=== PATIENT | male | born 1950 | race Caucasian/White ===

== ENCOUNTER 2024-07-30 17:59 | Inpatient (IN) | payer MEDICARE, OTHER ==
[~2024-07-30] VITALS: Ht 177.8 cm; Wt 91.2 kg
[2024-07-30 18:35] LABS: BASOPHILS % (AUTO) 0.4 % (0.0-2.0); EOSINOPHILS % (AUTO) 0.5 % (0.0-6.0); HEMATOCRIT 31 % (39-51); HEMOGLOBIN 10.2 g/dL (13.5-17.5); LYMPHOCYTES # (AUTO) 0.7 K/uL (0.8-4.8); LYMPHOCYTES % (AUTO) 9.5 % (20.0-44.0); MEAN CORPUSCULAR HEMOGLOBIN 30 PG (26.0-33.0); MEAN CORPUSCULAR HGB CONC 33 g/dl (31.0-36.0); MEAN CORPUSCULAR VOLUME 90 fL (80-96); MONOCYTES # (AUTO) 0.5 K/uL (0.1-1.30); MONOCYTES % (AUTO) 7.2 % (2.0-12.0); NEUTROPHILS # (AUTO) 6.3 K/uL (1.8-8.9); NEUTROPHILS % (AUTO) 82.4 % (43.0-81.0); PLATELET COUNT (AUTO) 158 K/uL (150-450); RED BLOOD CELL COUNT(AUTO) 3.43 MIL/uL (4.5-6.0); RED CELL DISTRIBUTION WIDTH 14.8 % (11.5-15.0); WHITE BLOOD COUNT (AUTO) 7.6 K/uL (4.3-11.0)
[2024-07-30] MEDS: IV NS 0.9% 1,000 ML BAG IV ONE (18:59)
[2024-07-30] MEDS ORDERED: ONDANSETRON HCL/PF 4 MG/2 ML VIAL ONE (19:05)
[2024-07-30] MEDS: ONDANSETRON HCL/PF - ER 4 MG/2 ML VIAL IV ONE (19:07)
[2024-07-30 19:08] LABS: LACTIC ACID 1.2 mmol/L (0.4-2.0)
[2024-07-30 19:15] LABS: ALANINE AMINOTRANSFERASE 24 U/L (12-78); ALBUMIN 3.3 g/dL (3.4-5.0); ALKALINE PHOSPHATASE 84 U/L (46-116); ASPARTATE AMINOTRANSFERASE 15 U/L (15-37); BILIRUBIN,DIRECT 0.2 mg/dL (0.0-0.2); BILIRUBIN,TOTAL 1.1 mg/dL (0.2-1.0); CARBON DIOXIDE 22 mmol/L (21-32); CHLORIDE 106 mmol/L (98-107); CREATININE 1.3 mg/dL (0.6-1.3); GLUCOSE 130 mg/dL (74-106); POTASSIUM 5.5 mmol/L (3.5-5.1); SODIUM SERUM 134 mmol/L (136-145); TOTAL PROTEIN, SERUM 6.3 g/dL (6.4-8.2); UREA NITROGEN, BLOOD 30 mg/dL (7-18)
[2024-07-30 19:20] LABS: CALCIUM, SERUM 7.3 mg/dL (8.5-10.1)
[2024-07-30 19:23] LABS: INR 1.17 (0.91-1.10); PARTIAL THROMBOPLASTIN TIME 27.1 SEC (24.3-34.3); PROTHROMBIN TIME 11.9 SECS (9.2-11.1)
[2024-07-30] MEDS: CEFEPIME 1 GM in IV D5W 50 ML IV ONE (19:30)
[2024-07-30] MEDS ORDERED: IV NS 0.9% 250 ML IV ONE (19:32)
[2024-07-30] MEDS ORDERED: ACETAMINOPHEN ES 500 MG TABLET ONE (19:32)
[2024-07-30] MEDS ORDERED: IOHEXOL-300 100 ML VIAL IV ONE (19:32)
[2024-07-30] MEDS: ACETAMINOPHEN ES 500 MG TABLET PO ONE (19:36)
[2024-07-30] MEDS: VANCOMYCIN 1 GM in IV D5W 250 ML IV ONE (20:33)
[2024-07-30] MEDS ORDERED: Z GUARD REMEDY 4 OZ OINT TP PRN (22:00)
[2024-07-30] MEDS ORDERED: MAG HYDROX/AL HYDROX/SIMETH 30 ML UDC PO PRN (22:00)
[2024-07-30] MEDS ORDERED: ONDANSETRON HCL/PF 4 MG/2 ML VIAL IVP PRN (22:00)
[2024-07-30] MEDS ORDERED: MAGNESIUM HYDROXIDE 30 ML UDC PO PRN (22:00)
[2024-07-30 22:04] LABS: APPEARANCE,URINE CLEAR (CLEAR); BILIRUBIN,URINE NEGATIVE (NEGATIVE); BLOOD, URINE 1+ Ery/uL (NEGATIVE); COLOR,URINE YELLOW (YELLOW); KETONES,URINE NEGATIVE (NEGATIVE); LEUKOCYTE ESTERASE ,URINE 1+ (NEGATIVE); NITRITE, URINE POSITIVE (NEGATIVE); PROTEIN,URINE NEGATIVE (NEGATIVE); UGLUCOSE NEGATIVE (NEGATIVE); UROBILINOGEN,URINE 0.2 EU/dL (0.2)
[2024-07-30 22:55] LABS: ADD URINE CULTURE YES; BACTERIA,URINE Moderate /HPF (None Seen); SQUAMOUS EPITHELIAL CELL,UR 0-2 /HPF (None Seen)
[2024-07-30] MEDS ORDERED: ATOR80TA PO (23:23)
[2024-07-30] MEDS: IV NS 0.9% 1,000 ML IV SCH (23:30)
[2024-07-30] MEDS ORDERED: FEXO-65 PO (23:34)
[2024-07-30] MEDS ORDERED: CELE200C PO (23:34)
[2024-07-30] MEDS ORDERED: OMEP20CA15 PO (23:34)
[2024-07-30] MEDS ORDERED: ASPI-1169 PO (23:34)
[2024-07-30] MEDS ORDERED: LISI40TA13 PO (23:34)
[2024-07-30] MEDS ORDERED: LEVO25TA7 PO (23:34)
[2024-07-30] MEDS ORDERED: GABA-532 PO (23:34)
[2024-07-30] MEDS: IV NS 0.9% 1,000 ML IV ONE (23:37)
[2024-07-30] MEDS ORDERED: VANCOMYCIN 1 GM /D5W 250 ML PB IV ONE (23:38)
[2024-07-30] MEDS: VANCOMYCIN 750 MG in IV D5W 250 ML IV ONE (23:42)
[2024-07-31] VITALS: TEMP 98.1
[2024-07-31 04:00] VITALS: BP 126/44; TEMP 98.1; O2SAT 96
[2024-07-31] MEDS ORDERED: PIPERACI/TAZO 3.375GM/D5W 50ML PB IV ONE (06:27)
[2024-07-31] MEDS: PIPERACILLIN /TAZOBACTAM 3.375 G in IV D5W 50 ML IV ONE (06:30)
[2024-07-31] MEDS: LEVOTHYROXINE SODIUM 25 MCG TABLET PO SCH (06:30)
[2024-07-31 07:52] LABS: CALCIUM, SERUM 7.6 mg/dL (8.5-10.1); CARBON DIOXIDE 20 mmol/L (21-32); CHLORIDE 110 mmol/L (98-107); CREATININE 1.1 mg/dL (0.6-1.3); GLUCOSE 113 mg/dL (74-106); MAGNESIUM 1.8 mg/dL (1.8-2.4); PHOSPHORUS 2.7 mg/dL (2.5-4.9); SODIUM SERUM 138 mmol/L (136-145); UREA NITROGEN, BLOOD 23 mg/dL (7-18)
[2024-07-31 07:58] LABS: BASOPHILS % (AUTO) 0.3 % (0.0-2.0); EOSINOPHILS % (AUTO) 0.1 % (0.0-6.0); HEMATOCRIT 30 % (39-51); HEMOGLOBIN 10.3 g/dL (13.5-17.5); LYMPHOCYTES # (AUTO) 1.4 K/uL (0.8-4.8); MEAN CORPUSCULAR HEMOGLOBIN 30 PG (26.0-33.0); MEAN CORPUSCULAR HGB CONC 34 g/dl (31.0-36.0); MEAN CORPUSCULAR VOLUME 89 fL (80-96); MONOCYTES # (AUTO) 0.9 K/uL (0.1-1.30); MONOCYTES % (AUTO) 8.6 % (2.0-12.0); NEUTROPHILS # (AUTO) 8.1 K/uL (1.8-8.9); PLATELET COUNT (AUTO) 161 K/uL (150-450); RED BLOOD CELL COUNT(AUTO) 3.38 MIL/uL (4.5-6.0); RED CELL DISTRIBUTION WIDTH 15.1 % (11.5-15.0); WHITE BLOOD COUNT (AUTO) 10.4 K/uL (4.3-11.0)
[2024-07-31 08:10] VITALS: BP 108/47; TEMP 98.4; O2SAT 93
[2024-07-31 08:38] LABS: LYMPHOCYTES % (MANUAL) 11 % (16-48); MONOCYTES % (MANUAL) 10 % (0-11.0); NEUTROPHILS % (MANUAL) 79 (42-76); PLATELET ESTIMATE ADEQUATE
[2024-07-31 08:39] LABS: OVALOCYTES 1+
[2024-07-31] MEDS: FEXOFENADINE HCL (60 MG) 60 MG TABLET PO SCH (08:42)
[2024-07-31] MEDS: ATORVASTATIN 40 MG TABLET PO SCH (08:42)
[2024-07-31] MEDS: GABAPENTIN 100 MG CAPSULE PO SCH (08:42)
[2024-07-31] MEDS: ASPIRIN 81 MG TAB.CHEW PO SCH (08:42)
[2024-07-31] MEDS: PANTOPRAZOLE 40 MG VIAL IV SCH (08:42)
[2024-07-31] MEDS: CELECOXIB 100 MG CAPSULE PO SCH (08:43)
[2024-07-31] MEDS ORDERED: LISINOPRIL (20MG) 20 MG TABLET PO SCH (09:00)
[2024-07-31] MEDS: VANCOMYCIN 1 GM in IV D5W 250 ML IV SCH (10:30)
[2024-07-31 12:20] VITALS: BP 95/46; TEMP 97.5; O2SAT 96
[2024-07-31] MEDS: PIPERACILLIN /TAZOBACTAM 3.375 G in IV D5W 100 ML IV SCH (13:10)
[2024-07-31 16:20] VITALS: BP 102/52; TEMP 97.3; O2SAT 95
[2024-07-31] MEDS: ACIDOPHILUS/BULGARICUS 1 EACH GRAN.PACK PO SCH (16:28)
[2024-07-31 21:05] VITALS: BP 101/41; TEMP 97.5; O2SAT 96
[2024-08-01 00:34] VITALS: BP 119/46; TEMP 98.1; O2SAT 97
[2024-08-01 06:16] VITALS: BP 118/50; TEMP 97.8; O2SAT 97
[2024-08-01 07:49] LABS: BASOPHILS % (AUTO) 0.4 % (0.0-2.0); EOSINOPHILS # (AUTO) 0.2 K/uL (0.0-0.7); EOSINOPHILS % (AUTO) 2.3 % (0.0-6.0); HEMATOCRIT 28 % (39-51); HEMOGLOBIN 9.5 g/dL (13.5-17.5); LYMPHOCYTES # (AUTO) 1.4 K/uL (0.8-4.8); LYMPHOCYTES % (AUTO) 19.5 % (20.0-44.0); MEAN CORPUSCULAR HEMOGLOBIN 30 PG (26.0-33.0); MEAN CORPUSCULAR HGB CONC 34 g/dl (31.0-36.0); MEAN CORPUSCULAR VOLUME 88 fL (80-96); MONOCYTES # (AUTO) 0.8 K/uL (0.1-1.30); MONOCYTES % (AUTO) 11.8 % (2.0-12.0); NEUTROPHILS # (AUTO) 4.6 K/uL (1.8-8.9); PLATELET COUNT (AUTO) 151 K/uL (150-450); RED BLOOD CELL COUNT(AUTO) 3.22 MIL/uL (4.5-6.0); RED CELL DISTRIBUTION WIDTH 15.1 % (11.5-15.0)
[2024-08-01 08:00] VITALS: BP 120/58; TEMP 97.8; O2SAT 98
[2024-08-01 08:10] LABS: CALCIUM, SERUM 7.8 mg/dL (8.5-10.1); CARBON DIOXIDE 21 mmol/L (21-32); CHLORIDE 112 mmol/L (98-107); CREATININE 1.1 mg/dL (0.6-1.3); GLUCOSE 96 mg/dL (74-106); POTASSIUM 4.3 mmol/L (3.5-5.1); SODIUM SERUM 141 mmol/L (136-145); UREA NITROGEN, BLOOD 18 mg/dL (7-18)
[2024-08-01] MEDS: ACIDOPHILUS/BULGARICUS 1 EACH TAB.CHEW PO SCH (08:55)
[2024-08-01] MEDS ORDERED: FEXOFENADINE HCL (60 MG) 60 MG TABLET PO PRN (09:30)
[2024-08-01 10:03] LABS: EOSINOPHILS % (MANUAL) 4 % (0-4); LYMPHOCYTES % (MANUAL) 15 % (16-48); MONOCYTES % (MANUAL) 8 % (0-11.0); NEUTROPHILS % (MANUAL) 73 (42-76)
[2024-08-01 10:04] LABS: PLATELET ESTIMATE ADEQUATE
[2024-08-01 10:05] LABS: ANISOCYTOSIS 1+
[2024-08-01 11:22] LABS: THYROID STIMULATING HORMONE 4.93 uIU/mL (0.358-3.74)
[2024-08-01 12:00] VITALS: BP 102/52; TEMP 97.6; O2SAT 98
[2024-08-01 16:00] VITALS: BP 106/54; TEMP 98; O2SAT 97
[2024-08-01] MEDS: BACI/NEOM/POLY B OINT PKT 1 UDPKT PACKET TP SCH (16:25)
[2024-08-01 20:00] VITALS: BP 114/56; TEMP 97.9; O2SAT 99
[2024-08-01] MEDS ORDERED: VANCOMYCIN 750 MG in IV D5W 250 ML IV SCH (23:00)
[2024-08-02] VITALS: BP 132/56; TEMP 97.7; O2SAT 99
[2024-08-02 04:00] VITALS: BP 135/55; TEMP 98; O2SAT 98
[2024-08-02 05:10] LABS: FOLIC ACID > 20.0 ng/mL (>3.0)
[2024-08-02 07:25] LABS: OCCULT BLOOD STOOL NEGATIVE (NEGATIVE)
[2024-08-02 08:00] VITALS: BP 137/52; TEMP 97.9; O2SAT 97
[2024-08-02 08:03] LABS: CARBON DIOXIDE 20 mmol/L (21-32); CHLORIDE 114 mmol/L (98-107); GLUCOSE 106 mg/dL (74-106); POTASSIUM 4.3 mmol/L (3.5-5.1); SODIUM SERUM 142 mmol/L (136-145); UREA NITROGEN, BLOOD 14 mg/dL (7-18)
[2024-08-02] MEDS: PANTOPRAZOLE 40 MG TABLET.DR PO SCH (08:30)
[2024-08-02 09:36] LABS: BASOPHILS % (AUTO) 0.3 % (0.0-2.0); EOSINOPHILS # (AUTO) 0.2 K/uL (0.0-0.7); EOSINOPHILS % (AUTO) 3.1 % (0.0-6.0); HEMATOCRIT 27 % (39-51); LYMPHOCYTES # (AUTO) 1.6 K/uL (0.8-4.8); LYMPHOCYTES % (AUTO) 25.9 % (20.0-44.0); MEAN CORPUSCULAR HEMOGLOBIN 30 PG (26.0-33.0); MEAN CORPUSCULAR HGB CONC 34 g/dl (31.0-36.0); MEAN CORPUSCULAR VOLUME 88 fL (80-96); MONOCYTES # (AUTO) 0.6 K/uL (0.1-1.30); MONOCYTES % (AUTO) 10.3 % (2.0-12.0); NEUTROPHILS # (AUTO) 3.7 K/uL (1.8-8.9); NEUTROPHILS % (AUTO) 60.4 % (43.0-81.0); PLATELET COUNT (AUTO) 145 K/uL (150-450); RED BLOOD CELL COUNT(AUTO) 3.04 MIL/uL (4.5-6.0); RED CELL DISTRIBUTION WIDTH 15.1 % (11.5-15.0); WHITE BLOOD COUNT (AUTO) 6.1 K/uL (4.3-11.0)
[2024-08-02 12:00] VITALS: BP 135/56; TEMP 97.6; O2SAT 99
[2024-08-02 16:00] VITALS: BP 134/57; TEMP 97.8; O2SAT 99
[2024-08-02 20:00] VITALS: BP 130/55; TEMP 97.7; O2SAT 99
[2024-08-03] VITALS: BP 144/53; TEMP 98.1; O2SAT 99
[2024-08-03 04:00] VITALS: BP 146/44; TEMP 97.5; O2SAT 97
[2024-08-03 08:00] VITALS: BP 123/48; TEMP 97.5; O2SAT 98
[2024-08-03] MEDS: ACETAMINOPHEN 325 MG TABLET PO PRN (10:14)
[2024-08-03] MEDS ORDERED: METR500T PO (12:42)
[2024-08-03] MEDS ORDERED: CEFD300C3 PO (12:42)
[2024-08-05 19:06] LABS: METHYLMALONIC ACID 137 nmol/L (0-378)
[2024-08-07 10:07] LABS: VITAMIN B1 THIAMINE,WB 110.5 nmol/L (66.5-200.0)
== END 2024-08-03 13:15 | disposition home or self-care (01) | DRG 871 ==
LOC: ER 18:04 → MEDSG1 21:32 → TELE1 22:01 → MEDSG1 08-03 10:45
PROVIDERS: ATTEND Nurse Practitioner Acute Care
DX: A41.9 Sepsis, unspecified organism (principal); G92.8 Other toxic encephalopathy; N17.0 Acute kidney failure with tubular necrosis; N10 Acute pyelonephritis; D62 Acute posthemorrhagic anemia; K57.92 Diverticulitis of intestine, part unspecified, without perforation or abscess without bleeding; E87.1 Hypo-osmolality and hyponatremia; N39.0 Urinary tract infection, site not specified; L03.115 Cellulitis of right lower limb; L03.116 Cellulitis of left lower limb; K80.20 Calculus of gallbladder without cholecystitis without obstruction; K52.9 Noninfective gastroenteritis and colitis, unspecified; Z20.822 Contact with and (suspected) exposure to COVID-19; I25.10 Atherosclerotic heart disease of native coronary artery without angina pectoris; I10 Essential (primary) hypertension; M19.90 Unspecified osteoarthritis, unspecified site; Z98.890 Other specified postprocedural states; Z88.1 Allergy status to other antibiotic agents; E78.5 Hyperlipidemia, unspecified; D64.9 Anemia, unspecified; E87.5 Hyperkalemia; B96.89 Other specified bacterial agents as the cause of diseases classified elsewhere; M89.8X9 Other specified disorders of bone, unspecified site; Z87.440 Personal history of urinary (tract) infections; Z79.82 Long term (current) use of aspirin; Z79.890 Hormone replacement therapy; Z79.899 Other long term (current) drug therapy; E86.9 Volume depletion, unspecified; E03.8 Other specified hypothyroidism; K44.9 Diaphragmatic hernia without obstruction or gangrene; Z87.828 Personal history of other (healed) physical injury and trauma; L89.610 Pressure ulcer of right heel, unstageable
CPT/HCPCS: 36415; 70450-TC; 71045-TC; 80048-TC; 80076-TC; 80202-TC; 81001; 82272-TC; 82607-TC; 83605-TC; 83690-TC; 83735-TC; 83921; 84100-TC; 84425; 84439-TC; 84443-TC; 84484-TC; 85025-TC; 85730-TC; 87040-TC; 87081-TC; 87086-TC; 93307-TC; 97110-TC; 97530-TC; 97535-TC; A4223; A6253; G0378; J0692; J2405; J2470; J2543; J3370; J3371; J7030; J7050; J7060; Q9967

== ENCOUNTER 2024-12-31 22:26 | Inpatient (IN) | payer MEDICARE, OTHER ==
[~2024-12-31] VITALS: Ht 175.3 cm; Wt 87.5 kg
[~2024-12-31 22:26] MED LIST: ASPI-1169 PO; ATOR80TA PO; CEFD300C3 PO; CELE200C PO; FEXO-65 PO; GABA-532 PO; LEVO25TA7 PO; LISI40TA13 PO; METR500T PO; OMEP20CA15 PO
[2025-01-01] VITALS (7 sets, daily range): BP systolic 106–129; BP diastolic 48–90; TEMP 97.3–98.8; O2SAT 96–99
[2025-01-01] MEDS: PIPERACILLIN /TAZOBACTAM 3.375 G in IV D5W 50 ML IV ONE (02:00)
[2025-01-01] MEDS ORDERED: PIPERACI/TAZO 3.375GM/D5W 50ML PB IV ONE (02:36)
[2025-01-01] MEDS ORDERED: ONDANSETRON HCL/PF 4 MG/2 ML VIAL ONE (02:36)
[2025-01-01] MEDS: ONDANSETRON HCL/PF - ER 4 MG/2 ML VIAL IV ONE (02:49)
[2025-01-01] MEDS: IV NS 0.9% 1,000 ML IV ONE ×2 (02:50)
[2025-01-01 03:14] LABS: BASOPHILS % (AUTO) 0.2 % (0.0-2.0); EOSINOPHILS % (AUTO) 0.1 % (0.0-6.0); LYMPHOCYTES # (AUTO) 1.1 K/uL (0.8-4.8)
[2025-01-01 03:17] LABS: CREATININE 1.2 mg/dL (0.6-1.3); POTASSIUM 4.1 mmol/L (3.5-5.1)
[2025-01-01 03:18] LABS: HEMATOCRIT 35 % (39-51); HEMOGLOBIN 11.5 g/dL (13.5-17.5); LYMPHOCYTES % (AUTO) 7.5 % (20.0-44.0); MEAN CORPUSCULAR HEMOGLOBIN 29 PG (26.0-33.0); MEAN CORPUSCULAR HGB CONC 33 g/dl (31.0-36.0); MEAN CORPUSCULAR VOLUME 87 fL (80-96); MONOCYTES % (AUTO) 6.9 % (2.0-12.0); NEUTROPHILS # (AUTO) 12.6 K/uL (1.8-8.9); NEUTROPHILS % (AUTO) 85.3 % (43.0-81.0); PLATELET COUNT (AUTO) 172 K/uL (150-450); RED BLOOD CELL COUNT(AUTO) 3.98 MIL/uL (4.5-6.0); RED CELL DISTRIBUTION WIDTH 19.8 % (11.5-15.0); WHITE BLOOD COUNT (AUTO) 14.8 K/uL (4.3-11.0)
[2025-01-01 03:23] LABS: ALBUMIN 3.7 g/dL (3.4-5.0); BILIRUBIN,DIRECT 0.2 mg/dL (0.0-0.2); BILIRUBIN,TOTAL 0.8 mg/dL (0.2-1.0); TOTAL PROTEIN, SERUM 6.6 g/dL (6.4-8.2)
[2025-01-01 03:26] LABS: INR 1.13 (0.91-1.10); LACTIC ACID 1.8 mmol/L (0.4-2.0); PARTIAL THROMBOPLASTIN TIME 29.3 SEC (24.3-34.3); PROTHROMBIN TIME 11.9 SECS (9.2-11.1)
[2025-01-01 04:01] LABS: LYMPHOCYTES % (MANUAL) 8 % (16-48); MONOCYTES % (MANUAL) 10 % (0-11.0); NEUTROPHILS % (MANUAL) 82 (42-76); PLATELET ESTIMATE ADEQUATE
[2025-01-01 04:03] LABS: OVALOCYTES FEW
[2025-01-01 04:42] LABS: APPEARANCE,URINE CLEAR (CLEAR); BILIRUBIN,URINE NEGATIVE (NEGATIVE); BLOOD, URINE NEGATIVE Ery/uL (NEGATIVE); COLOR,URINE YELLOW (YELLOW); KETONES,URINE NEGATIVE (NEGATIVE); LEUKOCYTE ESTERASE ,URINE NEGATIVE (NEGATIVE); NITRITE, URINE NEGATIVE (NEGATIVE); PROTEIN,URINE NEGATIVE (NEGATIVE); UGLUCOSE NEGATIVE (NEGATIVE)
[2025-01-01 05:18] LABS: ADD URINE CULTURE YES; BACTERIA,URINE Moderate /HPF (None Seen); SQUAMOUS EPITHELIAL CELL,UR Few /HPF (None Seen); YEAST,URINE Few /HPF (None Seen)
[2025-01-01] MEDS ORDERED: ACETAMINOPHEN 325 MG TABLET PO PRN (05:30)
[2025-01-01] MEDS ORDERED: MAGNESIUM HYDROXIDE 30 ML UDC PO PRN (05:30)
[2025-01-01] MEDS ORDERED: ZOLPIDEM TARTRATE 5 MG TABLET PO PRN (05:30)
[2025-01-01] MEDS ORDERED: ONDANSETRON HCL/PF 4 MG/2 ML VIAL IVP PRN (05:30)
[2025-01-01] MEDS ORDERED: Z GUARD REMEDY 4 OZ OINT TP PRN (05:30)
[2025-01-01] MEDS ORDERED: MAG HYDROX/AL HYDROX/SIMETH 30 ML UDC PO PRN (05:30)
[2025-01-01] MEDS ORDERED: AMLO2.5T4 PO (08:13)
[2025-01-01] MEDS ORDERED: LEVO50TA8 PO (08:13)
[2025-01-01] MEDS ORDERED: DOXA8TAB79 PO (08:13)
[2025-01-01] MEDS: GABAPENTIN 100 MG CAPSULE PO SCH (10:13)
[2025-01-01] MEDS: PIPERACILLIN /TAZOBACTAM 3.375 G in IV D5W 50 ML IV SCH (10:13)
[2025-01-01] MEDS: LISINOPRIL (20MG) 20 MG TABLET PO SCH (10:14)
[2025-01-01] MEDS: LEVOTHYROXINE SODIUM 25 MCG TABLET PO SCH (10:15)
[2025-01-01] MEDS: ATORVASTATIN 40 MG TABLET PO SCH (10:15)
[2025-01-01] MEDS: ASPIRIN 81 MG TAB.CHEW PO SCH (10:15)
[2025-01-01] MEDS: PANTOPRAZOLE 40 MG TABLET.DR PO SCH (10:15)
[2025-01-01] MEDS: MENTHOL/CETYLPYRD (CEPACOL) 1 LOZ LOZENGE PO PRN (13:59)
[2025-01-01] MEDS ORDERED: HYDROCODONE BIT/HOMATROPINE 5 ML UDC PO PRN (17:30)
[2025-01-01] MEDS: IPRATROPIUM NEB FS 0.5 MG/2.5 ML AMPUL.NEB NEB SCH (17:30)
[2025-01-01] MEDS ORDERED: BENZONATATE 100 MG CAPSULE PO PRN (17:30)
[2025-01-01] MEDS: ALBUTEROL FS 2.5 MG/3 ML VIAL.NEB NEB SCH (17:30)
[2025-01-01] MEDS: GUAIFENESIN LA 600 MG TABLET.SA PO SCH (17:42)
[2025-01-01] MEDS: dexaMETHasone SOD PHOSPHATE 10 MG/ML VIAL IV ONE (17:42)
[2025-01-02] VITALS (13 sets, daily range): BP systolic 107–149; BP diastolic 44–76; TEMP 97.3–98.1; O2SAT 95–100
[2025-01-02 08:07] LABS: HEMATOCRIT 34 % (39-51); HEMOGLOBIN 11.3 g/dL (13.5-17.5); LYMPHOCYTES # (AUTO) 0.7 K/uL (0.8-4.8); LYMPHOCYTES % (AUTO) 6.2 % (20.0-44.0); MEAN CORPUSCULAR HEMOGLOBIN 30 PG (26.0-33.0); MEAN CORPUSCULAR HGB CONC 34 g/dl (31.0-36.0); MEAN CORPUSCULAR VOLUME 88 fL (80-96); MONOCYTES # (AUTO) 0.1 K/uL (0.1-1.30); MONOCYTES % (AUTO) 1.2 % (2.0-12.0); NEUTROPHILS # (AUTO) 10.9 K/uL (1.8-8.9); NEUTROPHILS % (AUTO) 92.6 % (43.0-81.0); PLATELET COUNT (AUTO) 178 K/uL (150-450); RED BLOOD CELL COUNT(AUTO) 3.83 MIL/uL (4.5-6.0); RED CELL DISTRIBUTION WIDTH 20.1 % (11.5-15.0); WHITE BLOOD COUNT (AUTO) 11.7 K/uL (4.3-11.0)
[2025-01-02] MEDS: cetrizine 10 MG TABLET PO SCH (08:25)
[2025-01-02 08:45] LABS: MAGNESIUM 2.2 mg/dL (1.8-2.4); PHOSPHORUS 3.4 mg/dL (2.5-4.9); POTASSIUM 4.3 mmol/L (3.5-5.1)
[2025-01-03] VITALS (9 sets, daily range): BP systolic 127–137; BP diastolic 49–60; TEMP 97.5–98.2; O2SAT 95–100
[2025-01-03 07:43] LABS: BASOPHILS % (AUTO) 0.1 % (0.0-2.0); HEMATOCRIT 31 % (39-51); HEMOGLOBIN 10.4 g/dL (13.5-17.5); LYMPHOCYTES # (AUTO) 1.4 K/uL (0.8-4.8); LYMPHOCYTES % (AUTO) 10.7 % (20.0-44.0); MEAN CORPUSCULAR HEMOGLOBIN 29 PG (26.0-33.0); MEAN CORPUSCULAR HGB CONC 34 g/dl (31.0-36.0); MEAN CORPUSCULAR VOLUME 87 fL (80-96); MONOCYTES # (AUTO) 0.7 K/uL (0.1-1.30); MONOCYTES % (AUTO) 5.2 % (2.0-12.0); NEUTROPHILS # (AUTO) 11.2 K/uL (1.8-8.9); PLATELET COUNT (AUTO) 181 K/uL (150-450); RED BLOOD CELL COUNT(AUTO) 3.56 MIL/uL (4.5-6.0); RED CELL DISTRIBUTION WIDTH 19.8 % (11.5-15.0); WHITE BLOOD COUNT (AUTO) 13.3 K/uL (4.3-11.0)
[2025-01-03 07:46] LABS: CALCIUM, SERUM 8.5 mg/dL (8.5-10.1); CREATININE 1.2 mg/dL (0.6-1.3); MAGNESIUM 2.1 mg/dL (1.8-2.4); PHOSPHORUS 3.1 mg/dL (2.5-4.9); POTASSIUM 4.3 mmol/L (3.5-5.1)
[2025-01-03] MEDS ORDERED: BENZ-38 PO (12:51)
[2025-01-03] MEDS ORDERED: AMOX-427 PO (12:51)
[2025-01-03] MEDS ORDERED: ALBU8.5H8 INH (12:51)
[2025-01-03] MEDS ORDERED: Menthol/Cetylpyrd (Cepacol) PO (12:51)
== END 2025-01-03 15:00 | disposition home health service (06) | DRG 195 ==
LOC: ER 22:32 → TELE 01-01 05:15
PROVIDERS: ADMIT Nurse Practitioner Acute Care; ATTEND Nurse Practitioner Acute Care
DX: J15.9 Unspecified bacterial pneumonia (principal); G62.9 Polyneuropathy, unspecified; E78.5 Hyperlipidemia, unspecified; E03.9 Hypothyroidism, unspecified; M19.90 Unspecified osteoarthritis, unspecified site; Z20.822 Contact with and (suspected) exposure to COVID-19; R53.1 Weakness; R05.9 Cough, unspecified; I10 Essential (primary) hypertension
CPT/HCPCS: 36415; 71045-TC; 71250-TC; 80048-TC; 80076-TC; 81001; 83605-TC; 83735-TC; 84100-TC; 85025-TC; 85730-TC; 87040-TC; 94760-TC; 94762-TC; 94799-TC; A4223; G0378; J1100; J2405; J2543; J7030; J7050; J7060